=== PATIENT | male | born 1980 | race Two or more races ===

== ENCOUNTER 2016-07-30 18:43 | Emergency (ER) | payer MEDICAID, OTHER ==
[~2016-07-30] VITALS: Ht 175.3 cm; Wt 72.6 kg
[2016-07-30] MEDS ORDERED: MORPHINE SULFATE 4 MG/ML SYRG IV ONE (21:00)
[2016-07-30] MEDS ORDERED: ONDANSETRON HCL 4 MG/2 ML VIAL IV ONE (21:00)
[2016-07-30 23:31] VITALS: BP 115/68
== END 2016-07-30 23:41 | disposition short-term general hospital (02) ==
LOC: ER 18:53
DX: S12.9XXA Fracture of neck, unspecified, initial encounter (principal); M25.562 Pain in left knee; M79.605 Pain in left leg; R51 Headache; F17.210 Nicotine dependence, cigarettes, uncomplicated; F12.10 Cannabis abuse, uncomplicated; V09.20XA Pedestrian injured in traffic accident involving unspecified motor vehicles, initial encounter; Y93.89 Activity, other specified; Y92.89 Other specified places as the place of occurrence of the external cause; Y99.8 Other external cause status
CPT/HCPCS: 70450; 71010; 72125; 73562; 96374; 96375; 99291; J2270; J2405